=== PATIENT | male | born 1975 | race Caucasian/White ===

== ENCOUNTER 2017-06-11 12:19 | Outpatient (CLI) | payer BC | END 2017-06-11 12:20 | disposition home or self-care (01) | LOC: ULT 12:19 | PROVIDERS: ATTEND Family Medicine | DX: R60.9 Edema, unspecified (principal); I08.1 Rheumatic disorders of both mitral and tricuspid valves | CPT/HCPCS: 93306 ==

== ENCOUNTER 2019-03-24 14:58 | Outpatient (CLI) | payer BC ==
--- NOTE | 2019-03-24 15:36 | RAD ---
Exam:3 views left HISTORY: Patellofemoral pain. COMPARISON: None FINDINGS: No joint effusion. Joint spaces are preserved. No fracture or malalignment. IMPRESSION: Unremarkable 3 views left knee
== END 2019-03-24 14:59 | disposition home or self-care (01) ==
LOC: SCSRAD 14:58
PROVIDERS: ATTEND Family Medicine
DX: M22.2X2 Patellofemoral disorders, left knee (principal)

== ENCOUNTER 2025-01-26 09:30 | Outpatient (CLI) | payer BC | END 2025-01-26 09:31 | disposition home or self-care (01) | LOC: PET 09:30 | PROVIDERS: ATTEND Family Medicine | DX: N18.2 Chronic kidney disease, stage 2 (mild) (principal); Z85.820 Personal history of malignant melanoma of skin | CPT/HCPCS: 78816; A9552 ==